=== PATIENT | female | born 1995 | race Caucasian/White ===

== ENCOUNTER 2017-04-24 15:50 | Emergency (ER) | payer OTHER ==
[~2017-04-24] VITALS: Ht 165.1 cm; Wt 56.0 kg
[2017-04-24] MEDS ORDERED: IBUPROFEN 600MG TABLET PO ONE (19:00)
[2017-04-24] MEDS ORDERED: CYCLOBENZAPRINE 10MG TABLET PO ONE (19:00)
[2017-04-24 19:42] VITALS: BP 110/70
== END 2017-04-24 20:00 | disposition home or self-care (01) ==
LOC: ER 16:17
DX: M54.2 Cervicalgia (principal); M54.5 Low back pain; V49.9XXA Car occupant (driver) (passenger) injured in unspecified traffic accident, initial encounter; Y93.89 Activity, other specified; Y92.89 Other specified places as the place of occurrence of the external cause; Y99.8 Other external cause status; Z90.49 Acquired absence of other specified parts of digestive tract
CPT/HCPCS: 72100; 81025; 99284